=== PATIENT | male | born 1970 | race Caucasian/White ===

== ENCOUNTER 2020-02-11 10:21 | Inpatient (IN) ==
[2020-02-11 10:41] LABS: Basophils # 0.1 10*3/uL (0.0-0.2); Basophils % 1.1 % (0.0-0.8); Eosinophils # 0.7 10*3/uL (0.0-0.87); Eosinophils % 7.7 % (0.00-10.9); Hematocrit 54.1 VOL% (42.0-52.0); Hemoglobin 17.2 GM/DL (14.0-18.0); Immature Granulocytes % 0.3 %; Immature Granulocytes Absolute 0.03 #; Lymphocytes # 2.6 10*3/uL (1.4-4.0); Lymphocytes % 29.7 % (21.2-54.2); Mean Corpuscular HGB Conc 31.8 GM/DL (32-36); Mean Corpuscular Volume 88.7 FL (87-102); Mean Platelet Volume 10.8 FL (9.6-12.0); Neutrophils % 54.2 % (38.7-73.9); Platelet Count 190 T/CUMM (130-400); Red Cell Distribution Width 13.3 % (9.3-17.3); White Blood Count 8.9 T/CUMM (4-12)
[2020-02-11 10:52] LABS: INR 0.9; PT Patient Result 10.1 SECS (9.6-12.2); Partial Thromboplastin Time 26.4 SECS (20.8-36.0)
[2020-02-11] MEDS ORDERED: NITROGLYCERIN 2% OINT 1 INCH/GM PACK TOP STA (10:59)
[2020-02-11] MEDS ORDERED: NITROGLYCERIN SL 0.4 MG TABLET SL PRN (10:59)
[2020-02-11] MEDS ORDERED: amLODIPine 5 MG TABLET PO STA (10:59)
[2020-02-11] MEDS ORDERED: NITROGLYCERIN 2% OINT 1 INCH/GM PACK TOP ONE (11:02)
[2020-02-11] MEDS ORDERED: NITROGLYCERIN SL 0.4 MG TABLET SL ONE (11:02)
[2020-02-11] MEDS ORDERED: amLODIPine 5 MG TABLET ONE (11:02)
[2020-02-11 11:03] LABS: Bilirubin,Total 0.4 MG/DL (0.2-1.0); Calcium 9.3 MG/DL (8.5-10.1); Osmolality,Calculated 280.5 MOS/KG (273-304); Total Protein 7.4 G/DL (6.4-8.3)
[2020-02-11] MEDS ORDERED: MORPHINE 4 MG/1 ML VIAL IV PRN (11:44)
[2020-02-11] MEDS ORDERED: ONDANSETRON 4 MG/2 ML VIAL IV PRN (11:44)
[2020-02-11] MEDS ORDERED: POTASSIUM CHLORIDE 20 MEQ TABLET PO PRN (11:44)
[2020-02-11] MEDS ORDERED: MAGNESIUM SULF RIDER 2 GM in PREMIX 1 EACH IV PRN (11:44)
[2020-02-11] MEDS ORDERED: MAGNESIUM SULF RIDER 4 GM in PREMIX 1 EACH IV PRN (11:44)
[2020-02-11] MEDS ORDERED: cloNIDine 0.1 MG TABLET PO ONE (12:22)
[2020-02-11] MEDS ORDERED: ACETAMINOPHEN 500 MG TABLET PO PRN (14:23)
[2020-02-11] MEDS ORDERED: amLODIPine 10 MG TABLET PO ONE (14:23)
[2020-02-11] MEDS ORDERED: MAGNESIUM HYDROXIDE SUSP 30 ML UDCUP PO PRN (14:23)
[2020-02-11] MEDS ORDERED: SERTRALINE 25 MG TABLET PO ONE (15:17)
[2020-02-11] MEDS: ENOXAPARIN 120 MG/0.8 ML SYRINGE SUBCUT SCH (15:39)
[2020-02-11] MEDS: SODIUM CHLORIDE 0.45% 1,000 ML IV SCH ×2 (15:39→21:20)
[2020-02-11] MEDS: LOSARTAN 50 MG TABLET PO SCH ×2 (16:51→21:18)
[2020-02-11] MEDS: ASPIRIN CHEW 81 MG TABLET PO SCH (16:51)
[2020-02-11] MEDS: FUROSEMIDE 40 MG/5 ML UDCUP PO SCH (16:51)
[2020-02-11] MEDS ORDERED: hydrALAZINE 20 MG/1 ML VIAL IV ONE (20:07)
[2020-02-11] MEDS: SERTRALINE 25 MG TABLET PO SCH (21:18)
[2020-02-11] MEDS: NITROGLYCERIN 2% OINT 1 INCH/GM PACK TOP SCH (21:18)
[2020-02-11] MEDS ORDERED: hydrALAZINE 20 MG/1 ML VIAL IV STA (21:42)
[2020-02-11] MEDS: hydrALAZINE 10 MG TABLET PO SCH ×2 (21:54→21:55)
[2020-02-12] MEDS: ENOXAPARIN 120 MG/0.8 ML SYRINGE SUBCUT SCH (00:44)
[2020-02-12 06:01] LABS: Risk Ratio 6.29; VLDL CHOLESTEROL 36.6 MG/DL
[2020-02-12] MEDS ORDERED: BUTALBITAL/ACETAMIN/CAFFEINE 50-325-40 MG TABLET PO PRN ×2 (06:54→12:35)
[2020-02-12] MEDS: ASPIRIN CHEW 81 MG TABLET PO SCH (08:43)
[2020-02-12] MEDS: ROSUVASTATIN 10 MG TABLET PO SCH (08:43)
[2020-02-12] MEDS: ENOXAPARIN 40 MG/0.4 ML SYRINGE SUBCUT SCH (08:43)
[2020-02-12] MEDS: NITROGLYCERIN 2% OINT 1 INCH/GM PACK TOP SCH ×2 (08:43→20:23)
[2020-02-12] MEDS: hydrALAZINE 10 MG TABLET PO SCH ×4 (08:44→20:23)
[2020-02-12] MEDS: LOSARTAN 50 MG TABLET PO SCH ×2 (08:44→20:23)
[2020-02-12] MEDS: FUROSEMIDE 40 MG/5 ML UDCUP PO SCH ×2 (08:44→17:43)
[2020-02-12] MEDS: PANTOPRAZOLE 40 MG TABLET PO SCH (08:44)
[2020-02-12] MEDS ORDERED: hydrALAZINE 20 MG/1 ML VIAL IV PRN (12:05)
[2020-02-12] MEDS ORDERED: cloNIDine 0.1 MG TABLET PO PRN (12:55)
[2020-02-12] MEDS: amLODIPine 5 MG TABLET PO SCH ×2 (14:50→20:42)
[2020-02-12] MEDS: SERTRALINE 25 MG TABLET PO SCH (20:24)
[2020-02-13 04:05] LABS: Basophils # 0.1 10*3/uL (0.0-0.2); Basophils % 0.5 % (0.0-0.8); Eosinophils # 0.2 10*3/uL (0.0-0.87); Eosinophils % 1.7 % (0.00-10.9); Hematocrit 52.5 VOL% (42.0-52.0); Hemoglobin 17.5 GM/DL (14.0-18.0); Immature Granulocytes % 0.3 %; Immature Granulocytes Absolute 0.04 #; Lymphocytes # 2.1 10*3/uL (1.4-4.0); Lymphocytes % 16.7 % (21.2-54.2); Mean Corpuscular HGB Conc 33.3 GM/DL (32-36); Mean Corpuscular Volume 85.2 FL (87-102); Mean Platelet Volume 11.4 FL (9.6-12.0); Monocytes % 9.2 % (1.7-12.7); Neutrophils % 71.6 % (38.7-73.9); Platelet Count 227 T/CUMM (130-400); Red Blood Count 6.16 MC/CUMM (3.8-5.5); Red Cell Distribution Width 13.7 % (9.3-17.3); White Blood Count 12.3 T/CUMM (4-12)
[2020-02-13 04:23] LABS: Albumin 3.8 G/DL (3.4-5.0); Bilirubin,Total 0.9 MG/DL (0.2-1.0); Calcium 9.5 MG/DL (8.5-10.1); Osmolality,Calculated 271.4 MOS/KG (273-304); Total Protein 7.5 G/DL (6.4-8.3)
[2020-02-13] MEDS ORDERED: POTASSIUM CHLORIDE 20 MEQ/15 ML UDCUP PO ONE (07:31)
[2020-02-13 08:01] VITALS: BP 151/87
[2020-02-13] MEDS: ASPIRIN CHEW 81 MG TABLET PO SCH (08:32)
[2020-02-13] MEDS: ROSUVASTATIN 10 MG TABLET PO SCH (08:32)
[2020-02-13] MEDS: amLODIPine 5 MG TABLET PO SCH (08:32)
[2020-02-13] MEDS: hydrALAZINE 10 MG TABLET PO SCH (08:32)
[2020-02-13] MEDS: PANTOPRAZOLE 40 MG TABLET PO SCH (08:32)
[2020-02-13] MEDS: ENOXAPARIN 40 MG/0.4 ML SYRINGE SUBCUT SCH (08:33)
[2020-02-13] MEDS ORDERED: minoxidiL 2.5 MG TABLET PO SCH (09:00)
== END 2020-02-13 10:44 | disposition home or self-care (01) | DRG 305 ==
LOC: N.ED 10:21 → N.EDINP 11:44 → N.TELES 12:16
PROVIDERS: ADMIT Family Medicine; ATTEND Family Medicine